=== PATIENT | female | born 1970 | race Hispanic/Latino ===

== ENCOUNTER 2024-12-23 11:46 | Emergency (ER) | payer SELFPAY ==
[2024-12-23] MEDS ORDERED: 0.9%NACL 1000ML 1,000 ML IV ONE (12:00)
[2024-12-23] MEDS ORDERED: ondanSETRON 4MG INJ IVP ONE (12:00)
--- NOTE | 2024-12-23 12:21 | EKG ---
[facility] Test Date: 2024-12-23 Test Time: 12:19:18 Pat Name: BOO FERGUSON Department: ED Room: Gender: F [employer]: [id number] : 1970 Requested By: ANDREW TODD Order Number: [id number] Reading MD: Dimitris Bardales Measurements Intervals [place] Rate: 82 P: 14 AL: 131 QRS: -28 QRSD: 87 T: -22 QT: 391 QTc: 457 Interpretive Statements Sinus rhythm Borderline T abnormalities, diffuse leads No previous ECG available for comparison Electronically Signed On 12-23-2024 13:23:40 CDT by Dimitris Bardales Please click the below link to view image of tracing.
--- NOTE | 2024-12-23 12:46 | NUR ---
PT CAME TO WINDOW TO LET ME KNOW THEY WERE NO LONGER GOING TO WAIT AND THEY WERE LEAVING. PER PT IS FEELING A LOT BETTER.
--- NOTE | 2024-12-23 12:54 | HMCIMG ---
PORTABLE CHEST RADIOGRAPH INDICATION: sob COMPARISON: None FINDINGS: Heart size is normal. The pulmonary vascularity and lupis appear normal. No abnormal pulmonary parenchymal opacity or consolidation identified. No significant pleural effusion noted. No pneumothorax detected. IMPRESSION: No radiographic evidence for any acute cardiopulmonary process.
--- NOTE | 2024-12-23 13:00 | ERN ---
General Chief Complaint: Syncope Stated Complaint: NEAR SYNCOPE Time Seen by MD: 11:48 Time Seen by Midlevel: 11:48 Source: patient History of Present Illness Initial Comments The patient is a 54-year-old female being brought in by EMS after she sustained a near-syncope episode. The patient states she was at her local doctor's office and getting tested for H pylori. She also states she had 11 tubes of blood drawn. She said shortly after when she attempted to get up to go to the counter she felt like she was going to pass out. She was helped to a nearby chair where she felt generalized body weakness. EMS was called and the patient reported to the ER. On arrival the patient states her symptoms have completely resolved. She specifically denies any headache, vision changes, nausea, vomiting, or any other symptoms at this time. ROS Dictation CONSTITUTIONAL: Negative except for HPI HEAD/FACE: Negative except for HPI EENT: Negative except for HPI RESPIRATORY: Negative except for HPI GASTROINTESTINAL/ABDOMINAL: Negative except for HPI GENITOURINARY: Negative except for HPI MUSCULOSKELETAL: Negative except for HPI INTEGUMENTARY: Negative except for HPI NEUROLOGICAL/PSYCH: Negative except for HPI HEMATOLOGIC/LYMPHATIC: Negative except for HPI All Systems Negative, Except as noted above. 13 point review of systems assessed and all negative except for above. Physical Exam Physical Exam Dictation Vital Signs reviewed General Appearance: Alert, oriented x 3, no acute distress, well developed, nourished. Head and Face: non-traumatic. Eyes: PERRL, pink conjunctivas, eyelid no trauma, anterior chamber with arcus senilis. Ears: Pinnas intact and no signs of trauma or erythema ear canals clear and no discharge TM no erythema Nose: No discharge, no bleeding. Oropharynx: Mouth normal, tongue pink, pharynx clear,no erythema, tonsils no exudates, no abscesses noted, mucous membrane moist Neck: Supple, non-tender, no thyromegaly, no masses, no JVD, no bruits Breast:Deferred Chest:No tenderness, no crepitus, no paradoxical movement, no retractions Lungs:Clear, well-ventilated, symmetric, no rales, no wheezing, no rhonchi, no stridor, good breath sounds bilaterally Heart: Regular rate, regular rhythm, no murmur, no gallops Vascular: no peripheral edema, Abdomen: Soft, positive bowel sounds, nondistended, no guarding, nontender, no rebound, no masses no hepatomegaly, no splenomegaly, no Car's sign, no hernias. Rectal: Deferred Genital: Deferred Neurological: Normal speech, motor function intact, sensory function intact Musculoskeletal: Neck nontender, full range of motion, back nontender, full range of motion, Extremities: nontender, full range of motion Skin: Color pink, dry, no turgor, no rash, no lacerations, no abrasions, no contusions. Lymphatic: Deferred [facility] Patient is seen and evaluated. Syncope workup initiated. Per nurse the patient advised that she will be leaving the emergency department because she feels significantly better. We will arsh her down as eloped. ED Course Orders Procedure Category Date Status Time 12 Lead Ekg Tracing- EKG 12/23/24 Complete Technical 11:48 Cbc With Differential LAB 12/23/24 Logged 11:48 Basic Metabolic Panel LAB 12/23/24 Logged 11:48 Creatine Kinase, Total LAB 12/23/24 Logged 11:48 Troponin I High LAB 12/23/24 Logged Sensitivity 11:48 Chest 1vw RAD 12/23/24 Resulted 11:48 0.9%Nacl 1000ml (Ns PHA 12/23/24 Pending 1000ml) 12:00 Ondansetron 4mg Inj PHA 12/23/24 Pending (Zofran 4mg Inj) 12:00 Current Medications Medications (Trade) Dose Ordered Sig/Von Route PRN Reason Start Time Stop Time Status Last Admin Dose Admin Ondansetron HCl (zoFRAN 4MG INJ) 4 mg ONCE ONCE IVP 12/23/24 12:00 12/23/24 12:01 UNV Sodium Chloride 1,000 ml @ 0 mls/hr ONCE ONCE IV 12/23/24 12:00 12/23/24 12:01 UNV 12:56 p.m per triage nurse. The patient states she felt significantly improved and decided to leave the emergency department. Patient eloped at this time DX & DISP Disposition: Other(Comment) (Eloped) Departure Impression: Primary Impression: Eloped from emergency department Additional Impression: Near syncope Condition: Stable Referrals: SELF,REFERRAL (PCP) Time of Disposition: 12:58 I have reviewed the case, and I agree with, Diagnosis and Plan I performed the substantive portion of the visit. I have reviewed and personally made and approve the management plan that is documented in the note by myself or the ROBERTO. I acknowledge for responsibility for the patient's management plan. ANDREW TODD Dec 23, 2024 13:00
== END 2024-12-23 14:07 | disposition left against medical advice (07) ==
LOC: EDH 11:46
DX: R55 Syncope and collapse (principal)
CPT/HCPCS: 71045; 93005; 99283